=== PATIENT | female | born 1975 | race Caucasian/White ===

== ENCOUNTER 2020-12-25 13:57 | Emergency (ER) | payer BC ==
--- NOTE | 2020-12-25 15:37 | EDM.PDOC ---
ED HPI GENERAL MEDICAL PROBLEM - General Stated Complaint: SORE THROAT Time Seen by Provider: 12/25/20 14:10 - History of Present Illness INITIAL COMMENTS - FREE TEXT/NARRATIVE: Pt comes to ER with C/O sore throat since yesterday. She is concerned about Strep. She has no known contacts with anyone who has Strep. She has been off work for 1 week. She tells me she has a chronic cough and allergy issues at times. She has not been using any OTC meds for her symptoms. - Related Data Allergies Allergy/AdvReac Type Severity Reaction Status Date / Time No Known Allergies Allergy Verified 12/25/20 14:44 ED ROS ENT - Review of Systems Review Of Systems: Comprehensive ROS is negative, except as noted in HPI. HEENT: Reports: Throat Pain Respiratory: Reports: Cough ED EXAM, ENT - Physical Exam Exam: See Below Mouth/Throat: Other (Mucous membranes are dry. Pharynx is mildly reddened with patchy cobblestoning.) Head: Sinus Tenderness (over the Maxillary sinuses.) Course - Orders/Labs/Meds Labs: Laboratory Tests 12/25/20 Range/Units 14:49 SARS CoV-2 RNA Rapid TIAN Negative - Re-Assessments/Exams Free Text/Narrative Re-Assessment/Exam: 12/25/20 15:35 Covid is negative. Strep is negative. She will be treated for acute Sinusitis with Omnicef. OTC meds should be used as needed. Departure - Departure Time of Disposition: 15:25 Disposition: Home, Self-Care 01 Condition: Good Clinical Impression: Sinusitis, acute maxillary Qualifiers: Recurrence: non-recurrent Qualified Code(s): J01.00 - Acute maxillary sinusitis, unspecified - Discharge Information *PRESCRIPTION DRUG MONITORING PROGRAM REVIEWED*: No *COPY OF PRESCRIPTION DRUG MONITORING REPORT IN PATIENT SHARLENE: No Referrals: PCP,None [Primary Care Provider] - Additional Instructions: Omnicef 300 mg twice a day. Use OTC meds as needed. Activity as tolerated. Re check as needed if symptoms should get worse.
== END 2020-12-25 15:30 | disposition home or self-care (01) ==
LOC: LB.ED 13:57
DX: J01.00 Acute maxillary sinusitis, unspecified (principal); Z20.822 Contact with and (suspected) exposure to COVID-19
CPT/HCPCS: 99283; U0002

== ENCOUNTER 2024-06-21 10:01 | Day surgery (SDC) | payer BC ==
[~2024-06-21 10:01] MED LIST: Metoclopramide 10 MG/2 ML SDV IV PRN; Sodium Chloride 0.9% 1,000 ML IV SCH
[2024-06-21] MEDS ORDERED: Propofol 200 MG/20 ML SDV ONE (11:00)
[2024-06-21] MEDS: Sodium Chloride 0.9% 1,000 ML IV SCH (11:34)
== END 2024-06-21 12:30 | disposition home or self-care (01) ==
LOC: LB.SDS 10:01
PROVIDERS: ATTEND Surgery
DX: Z12.11 Encounter for screening for malignant neoplasm of colon (principal); D12.8 Benign neoplasm of rectum; R10.13 Epigastric pain; I10 Essential (primary) hypertension; E78.5 Hyperlipidemia, unspecified; E66.9 Obesity, unspecified; Z88.8 Allergy status to other drugs, medicaments and biological substances; Z91.030 Bee allergy status; Z79.899 Other long term (current) drug therapy; Z68.35 Body mass index [BMI] 35.0-35.9, adult; Z87.891 Personal history of nicotine dependence
CPT/HCPCS: 88305; J2704; J7030

== ENCOUNTER 2024-09-17 17:35 | Emergency (ER) | payer BC ==
[2024-09-17] MEDS ORDERED: traMADol 50 MG Tab ONE (18:30)
[2024-09-17] MEDS ORDERED: Sulfamethoxazole/Trimethoprim 800-160 MG Tab ONE (18:30)
== END 2024-09-17 18:45 | disposition home or self-care (01) ==
LOC: LB.ED 17:35
DX: H60.392 Other infective otitis externa, left ear (principal); I10 Essential (primary) hypertension; E78.00 Pure hypercholesterolemia, unspecified; Z91.030 Bee allergy status; Z88.8 Allergy status to other drugs, medicaments and biological substances; Z79.899 Other long term (current) drug therapy; Z87.891 Personal history of nicotine dependence
CPT/HCPCS: 99282; 99283; A9270-GY